=== PATIENT | female | born 1995 | race Caucasian/White ===

== ENCOUNTER 2019-01-13 14:12 | Emergency (ER) | payer OTHER ==
[~2019-01-13] VITALS: Ht 165.1 cm; Wt 66.7 kg
[2019-01-13 14:21] VITALS: BP 114/68
--- NOTE | 2019-01-13 14:25 | NUR ---
URINE CUP HANDED TO PT FOR SAMPLE----PT BACK TO [facility] CONTINUE TO WAIT FOR AVAILABLE ROOM FOR MD LEE
--- NOTE | 2019-01-13 16:06 | NUR ---
PT TO ER BED 8
--- NOTE | 2019-01-13 16:14 | NUR ---
23 Y FEMALE C/O HEADACHE FRONTAL LOBE WITH NAUSEA X LAST NIGHT. S/P HIT ON FACE WITH BALL WHILE PLAYING DODGE BALL LAST NIGHT. DENIES LOC. PT STATES SHE BELIEVES SHE HAS A CONCUSSION. PAIN 5/10 ACHING, THROBBING. VSS AT THIS TIME. AA0X4. BED IS DOWN,LOCKED, BED RAIL X 1, ERMD NOTIFIED. HX--BIPOLAR RX---PROZAC, LAMICTAL, WELLBUTRIN
--- NOTE | 2019-01-13 17:10 | NUR ---
dr lagos at bedside
[2019-01-13] MEDS ORDERED: HYDROcodone/APAP 5/325 MG 1 TAB TAB PO ONE (17:15)
[2019-01-13] MEDS ORDERED: ONDANSETRON 4 MG ODT PO ONE (17:15)
--- NOTE | 2019-01-13 17:30 | NUR ---
VSS AT THIS TIME. PT SITTING IN BED, AA0X4.
--- NOTE | 2019-01-13 17:51 | NUR ---
pt returned from ct
[2019-01-13 18:54] VITALS: BP 112/68
--- NOTE | 2019-01-13 18:57 | NUR ---
Patient discharged with v/s stable. Written and verbal after care instructions given and explained. Patient alert, oriented and verbalized understanding of instructions. Ambulatory with steady gait. All questions addressed prior to discharge. ID band removed. Patient advised to follow up with PMD. Rx of IBUPROFEN, NORCO given. Patient educated on indication of medication including possible reaction and side effects. Opportunity to ask questions provided and answered.
== END 2019-01-13 18:57 | disposition home or self-care (01) ==
LOC: MED 14:12
DX: S09.90XA Unspecified injury of head, initial encounter (principal); R42 Dizziness and giddiness; R11.10 Vomiting, unspecified; W21.00XA Struck by hit or thrown ball, unspecified type, initial encounter; Y93.89 Activity, other specified; Y92.89 Other specified places as the place of occurrence of the external cause; Y99.8 Other external cause status
CPT/HCPCS: 70450; 81002; 81025; 99284; Q0162